=== PATIENT | male | born 1975 | race Caucasian/White ===

== ENCOUNTER 2018-09-03 13:38 | Emergency (ER) | payer OTHER ==
[~2018-09-03] VITALS: Ht 185.4 cm; Wt 102.1 kg
[2018-09-03 13:53] VITALS: BP 164/88
[2018-09-03] MEDS ORDERED: DIPHTH,PERTUSS(ACELL),TET TOX 0.5 ML DISP.SYRIN. VAX IM ONE (14:00)
--- NOTE | 2018-09-03 14:19 | PHYS DOC ---
Past Medical History Past Medical History: No Pertinent History Past Surgical History: No Surgical History Alcohol Use: Occasionally Drug Use: None Adult General Chief Complaint Chief Complaint: FINGER INJURY HPI HPI Patient is a 43 year old male who presents to the emergency department with complaints of right middle finger pain and bleeding. Patient states that he was at work when his right middle finger was accidentally shut in a door. He is unsure when his last tetanus immunization was. He is not taking anything for relief of pain prior to arrival, currently, he reports his pain is a 6 out of 10 on the pain scale. He denies any decreased range of motion, numbness, or tingling of the affected finger. Review of Systems Review of Systems Constitutional: Denies fever or chills [] Musculoskeletal: see history of present illness Integument: Denies rash, reports laceration to the dorsal aspect of the right middle finger between the DIP and PIP Neurologic: Denies headache, focal weakness or sensory changes [] Complete systems were reviewed and found to be within normal limits, except as documented in this note. Current Medications Current Medications Current Medications Medications (Trade) Dose Ordered Sig/Ellen Start Time Stop Time Status Last Admin Dose Admin Diphtheria/ Tetanus/Acell Pertussis (Boostrix) 0.5 ml ONCE ONCE 09/03/18 14:00 09/03/18 14:05 DC 09/03/18 14:14 0.5 ML Allergies Allergies Allergies Coded Allergies Type Severity Reaction Last Updated Verified No Known Drug Allergies 09/03/18 No Physical Exam Physical Exam Constitutional: Well developed, well nourished, no acute distress, non-toxic appearance. [] HENT: Normocephalic, atraumatic, bilateral external ears normal,nose normal. [] Eyes:conjunctiva normal, no discharge. [] Neck: Normal range of motion, no stridor. [] Cardiovascular:Heart rate regular rhythm, Lungs & Thorax: Respirations even and unlabored, no retractions, no respiratory distress Skin: Warm, dry, no erythema, no rash; V-shaped laceration to the dorsal aspect of the right middle finger between the DIP and the PIP approximately 0.5 cm on each side, bleeding controlled with pressure held by patient.. [] Extremities: No cyanosis, no clubbing; middle finger of right hand full range of motion, no crepitus, no obvious deformity, 1+ swelling to the distal aspect of finger Neurologic: Alert and oriented X 3, normal motor function, normal sensory function, no focal deficits noted. [] Psychologic: Affect normal, judgement normal, mood normal. [] Current Patient Data Vital Signs Vital Signs Date Time Temp Pulse Resp B/P (MAP) Pulse Ox O2 Delivery O2 Flow Rate FiO2 09/03/18 13:53 98.6 70 18 164/88 (113) 98 Room Air 98.6 EKG EKG [] Radiology/Procedures Radiology/Procedures PROCEDURE: FINGER(S) RIGHT 3 views right third finger 09/03/2018 1:58 PM Indication: Crush injury Comparison: None Findings: Best seen on lateral view there is a small ossific density about the dorsal basilar aspect of the distal phalanx. Distal finger edema is noted. Findings could represent a small avulsion fracture. An associated injury of the extensor tendon should be evaluated clinically. No dislocation is identified. IMPRESSION: Possible avulsion fracture fragment noted of the dorsal base of the third finger. An associated injury of the extensor tendon should be evaluated clinically. [] Course & Med Decision Making Course & Med Decision Making Pertinent Labs and Imaging studies reviewed. (See chart for details) [] Dragon Disclaimer Dragon Disclaimer This electronic medical record was generated, in whole or in part, using a voice recognition dictation system. Departure Departure Impression: Primary Impression: Fracture, finger, distal phalanx, open Disposition: 01 HOME, SELF-CARE Condition: STABLE Referrals: TORRIE VILLANUEVA (PCP) Patient Instructions: Finger Fracture, [id number] Additional Instructions: Fill the prescription and use as directed, tylenol or motrin as needed for pain. Wear the finger splint until follow up. Follow up with your primary care doctor this week for re-evaluation, return to the ER if symptoms worsen. Scripts Cephalexin (KEFLEX) 500 Mg Capsule 500 MG PO QID for 5 Days, #20 CAP 0 Refills Prov: MERON VARGAS APRN 09/03/18 Splinting Splinting : Location: right middle finger Pre-Made Type: metal Splint: aluminum finger splint Pre-Proc Neuro Vasc Exam: normal Post-Proc Neuro Vasc Exam: normal, unchanged from pre-exam Problem Qualifiers Primary Impression: Fracture, finger, distal phalanx, open Encounter type: initial encounter Finger: middle finger Fracture alignment: nondisplaced Laterality: right Qualified Codes: S62.662B - Nondisplaced fracture of distal phalanx of right middle finger, initial encounter for open fracture MERON VRAGAS CHICLE GRINDER FEEDER Sep 03, 2018 14:19
[2018-09-03] MEDS ORDERED: CEPH-264 PO (14:39)
[2018-09-03] MEDS ORDERED: NEOMY/BACITR/POLYMYXIN OINT PACKET. TP ONE (14:45)
== END 2018-09-03 14:51 | disposition home or self-care (01) ==
LOC: ER 13:38
DX: S62.662B Nondisplaced fracture of distal phalanx of right middle finger, initial encounter for open fracture (principal); W23.0XXA Caught, crushed, jammed, or pinched between moving objects, initial encounter; Y93.89 Activity, other specified; Y92.89 Other specified places as the place of occurrence of the external cause; Y99.8 Other external cause status
CPT/HCPCS: 29130; 73140; 90471; 90715; 99284